=== PATIENT | male | born 1990 | race Caucasian/White ===

== ENCOUNTER 2024-06-03 12:58 | Outpatient (AMB) | payer OTHER, SELFPAY ==
--- NOTE | 2024-06-03 13:00 | A.SPINEOV_ITS ---
Intake Visit Reasons: consult for sx Intake Note: Mr. Calderón is here today c/o right sided siatica and leg pain. 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 Santana Calderón for intractable right leg pain, numbness and weakness HPI: This 34-year-old male has a long history of back pain and intermittent tolerable sciatica. The symptoms started at the age 14 and reoccurred when he was in his 20s and from then yearly he has had sciatica attacks. In the past he has done multiple physical therapy sessions. In the beginning of April he developed again an acute pain radiating down his right leg. This time dear intensity was much worse than usual. The pain radiates from his back down to his calf into his foot. He needed to be admitted to the hospital for pain control. He is currently on oxycodone, Tylenol, Advil, cyclobenzaprine and even with those amount of medication he still needs to lay on the floor from pain. In addition to the pain there is numbness of his right foot and weakness when he pushes his foot down. The latter symptoms have progressed. He tried physical therapy yesterday but is unable to comply due to the pain. He was referred to me emergently as an MRI showed a disc extrusion compressing the right S1 nerve root. PMH: Bipolar Medications: See above. In addition he takes lithium and clonazepam p.r.n. Allergies: NKDA Social history: . 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 He initially sits on his knees in the office and then moves towards laying down from pain. Straight leg raise is positive at 20 degrees with radiating pain into his right leg. There is numbness in the S1 dermatome. There is an absent Achilles reflex. And a grade 3/5 weakness of the plantar flexors on the right side. Radiological Studies: MRI done at [facility] shows moderate L5-S1 degenerative disc disease but more importantly there is a extruded disc fragment that is compressing on the right S1 nerve root. Impression/Plan: This patient is suffering from an acute S1 radiculopathy, right side with neurological deficits caused by a lumbar disc herniation L5-S1 compressing the right S1 nerve root. My advice that he will undergo an L5-S1 lumbar microdiskectomy to address the pain and to halt the neurological deficits. He is scheduled for her June 10. He will go to the emergency room with further progression of his neurological symptoms occur. Thank you for allowing me to participate in your patients care. total time spent was 50 minutes in counseling ,coordination of plan, personal review of imaging, surgical decision making and subsequent plan Josef Gamez MD, PhD Spine Fellowship Trained Neurosurgeon Director, [facility] e, Coding Level of Care Code New Pt Level 4 (71647) Diagnoses Lumbar disc herniation with myelopathy M51.06
== END 2024-06-03 13:30 | disposition home or self-care (01) ==
PROVIDERS: PCP Registered Nurse; Referring Provider Physical Medicine & Rehabilitation; Visit Provider Neurological Surgery
DX: M51.06 Intervertebral disc disorders with myelopathy, lumbar region (principal)
CPT/HCPCS: 99204

== ENCOUNTER → 2024-06-03 12:58 | Outpatient (BNVA) | payer OTHER, SELFPAY | PROVIDERS: PCP Registered Nurse; Visit Provider Neurological Surgery | DX: M51.06 Intervertebral disc disorders with myelopathy, lumbar region (principal) | CPT/HCPCS: 99202 ==

== ENCOUNTER 2024-06-10 09:09 | Day surgery (SDC) | payer OTHER, SELFPAY ==
[2024-06-04 11:52] VITALS: BMI 25.9
[2024-06-10] VITALS (9 sets, daily range): BP systolic 122–155; BP diastolic 75–99; PULSE 58–95; RESP 14–18; TEMP 36.2–36.5; O2SAT 97–100
[2024-06-10] MEDS: Gabapentin 300 MG CAPSULE PO (09:54)
[2024-06-10] MEDS: methocarbamoL 750 MG TABLET PO (09:55)
--- NOTE | 2024-06-10 12:23 | HO.ANESPROP2 ---
HPI - Anesthesia Eval Consult details Narrative: 34 yo male patient for Right L5-[id number] discectomy PMFSH Active Problems Active Problems: All Active Problems Lumbar disc herniation with myelopathy (Acute) GERD Bipolar Past Medical History Medical History Sciatica Back pain Lumbar disc herniation with myelopathy Anxiety Bipolar disorder Family History Family history of problems with anesthesia: No Surgical History Surgical History Hx of appendectomy History of Problems with Anesthesia: No Social History Social History (Updated 06/10/24 @ 12:28 by Neris George MD) Patient Tobacco Use Status: Never used Tobacco Substance Use Type: Marijuana Meds Allergies Allergy/AdvReac Type Severity Reaction Status Date / Time No Known Allergies Allergy Verified 06/10/24 09:22 Home Medications ?Medication ?Instructions ?Recorded ?Confirmed ?Last Taken ?Type clonazepam 0.5 mg tablet 0.5 mg PO DAILY PRN Anxiety 06/04/24 06/04/24 Unknown History lithium carbonate 300 mg capsule 300 mg PO QID 06/04/24 06/10/24 06/10/24 History methocarbamol 500 mg tablet 500 mg PO Q8H PRN Pain 06/04/24 06/04/24 Unknown History omeprazole 20 mg capsule,delayed 20 mg PO DAILY 06/04/24 06/10/24 06/10/24 History release Exam Height,Weight and Vital Signs: Height 6 ft 1 in Weight 89.1 kg Last Vital Signs Temp 97.2 F 06/10/24 09:48 Pulse 58 06/10/24 09:48 Resp 16 06/10/24 09:48 BP 122/75 06/10/24 09:48 Pulse Ox 98 06/10/24 09:48 O2 Del Method Room Air 06/10/24 09:48 Airway Mallampati Class: III (Small mouth) TM Dist: >3cm Neck ROM: Full Loose/Missing/Broken Teeth: No (Denies broken, loose, missing teeth) Heart: RRR Lungs: CTAB. Diminished Assessment and Plan Assessment Anesthesia Assessment: Anesthesia Plan Discussed and Chart Reviewed Final Anesthetic Review Family History of Problems with Anesthesia: No History of Problems with Anesthesia: No NPO: Yes ASA Class: II Final Preanesthetic Review: No Changes in Pt Med Stat, Meds/Allgs Chart Reviewed, Consent Obtained/Reviewed and Anes Risks/Benef Reviewed Patient Risk: Low Procedure Risk: Low Assessment/Block/Sedation in SS: Assess/Block/Sedation-SS Anesthetic Plan Anesthetic Plan: GA Disposition: Standard PACU
--- NOTE | 2024-06-10 12:27 | MHC.SHP ---
Pre-Procedural Eval Section A - 24 Hr Update-Section A only Date of Service: 06/10/24 Section B - Complete if H&P > 30 days Chief Complaint: Intervertebral disc disorders with myelopathy, Allergies: Allergies Allergy/AdvReac Type Severity Reaction Status Date / Time No Known Allergies Allergy Verified 06/10/24 09:22 Review of Systems Sugical H&P ROS: Negative: Constitution, Cardiovascular, Respiratory, Neurological, Psychiatric, Hem-Onc, Allergic/Immunologic, Gastrointestinal, Genitourinary, Musculoskeletal, Integumentary, Endocrine and Eyes/Ears/Nose/Throat Exam Surgical H&P Exam: Not Evaluated: HEENT, Not Evaluated: Heart, Not Evaluated: Lungs, Not Evaluated: Extremities, Not Evaluated: Abdomen, Not Evaluated: Skin and Not Evaluated: Neurological Exam Comment: H&P done in last 30 days Plan I have reviewed the history and physical and performed a pertinent physical examination on my patient. No changes have occurred unless specified. Plan remains the same, R L-S1 microdiscectomy Time Spent With Patient Time: Total time managing care of this patient today __7__ minutes.
--- NOTE | 2024-06-10 14:18 | W.PM.OPN ---
Operative Note Operative Note Date of Service: 06/10/24 Narrative: Preoperative diagnosis: Right S1 radiculopathy due to disc herniation Postoperative diagnosis: Same Procedure: Right L5-S1 microdiskectomy with microscope Surgeon: Josef Gamez MD, PhD Falafel Cart Cook: PEDRO Masters This patient is suffering from a right S1 lumbar radiculopathy due to disc herniation. The patient was offered a L5-S1 microdiskectomy to decompress the nerve root. The procedure complications were explained. The patient was consented. The patient was brought to the operating room and endotracheally intubated. The patient was turned in a prone position on the Ildefonso frame. Prepping and draping was done followed by time-out. A mid lumbar incision was made followed by release of the paravertebral muscles on the right side to expose the L5-S1 interspace. An intraoperative x-rays obtained to confirm the correct level. The microscope was brought in. A L5 laminotomy was done followed by opening of the flavum ligament. The S1 nerve root was identified and retracted medially to expose the L5-S1 disc space. The nerve root was displaced posteriorly. I was unable to retrieve any loose fragments. Therefore I performed an annulotomy and pushed out some minor fragments. According to the MRI there was a loose fragment sitting medial from the nerve root. I was not able to find his loose fragments despite extensive exploration medially from the S1 nerve root. The good news was that the S1 nerve root was completely decompressed. Hemostasis was done. The microscope was removed. Marcaine was injected intramuscularly.The incision was closed in two layers. Steri-Strips used to approximate seizure. An op-site were taken there was used to cover the incision. All sponge and needle counts were correct. Patient was extubated and transported in stable condition to recovery room. this procedure was done with the aid of a physician metallurgical laboratory assistant who performed the initial exposure until the microscope was brought in and performed the closure of the incision. Anesthesia: General Blood loss: 20 mL Complications: None Specimen: None Surgical time: Disposition: Discharge home
--- NOTE | 2024-06-10 14:46 | PM.DS ---
DS: Providers Provider Date of Service: 06/10/24 Primary care physician: Cynthia Dee APRN DS: Summary Time Attestation Discharge Coordination Time (in mins): 15 Quality: Safe Use of Opioids Does Pt have an Active Cancer Diagnosis on the Problem List?: No Quality: Stroke Does the patient have a stroke diagnosis?: No Physical Exam Vital Signs: Vital Signs: Last Vital Signs Temp 97.2 F 06/10/24 09:48 Pulse 58 06/10/24 09:48 Resp 16 06/10/24 09:48 BP 122/75 06/10/24 09:48 Pulse Ox 98 06/10/24 09:48 O2 Del Method Room Air 06/10/24 09:48 BMI result Body Mass Index 25.9 Discharge Plan Discharge Patient Disposition: Home, Self-Care Referrals: Cynthia Dee APRN [Primary Care Provider] - 1 Week Discharge Medications: Continued methocarbamol 500 mg tablet 500 mg PO Q8H PRN (Reason: Pain) clonazepam 0.5 mg tablet 0.5 mg PO DAILY PRN (Reason: Anxiety) lithium carbonate 300 mg capsule 300 mg PO QID omeprazole 20 mg capsule,delayed release(DR/EC) 20 mg PO DAILY Discharge Orders: Discharge Order (Routine); Ordered 06/10/24 Ordered By: Vern Chavez Diet: Advance to usual diet Activity on Discharge: As tolerated Activity Restrictions/Additional Instructions: After your spinal surgery we ask you to observe the following restrictions/guidelines: Activity: It is normal to feel some discomfort as you increase your activity, but that will improve with time. We ask you avoid heavy lifting or acitivities that cause pain. As a general rule, 8lbs is a safe limit for lifting right after surgery. Walk as much as you feel comfortable but not to exhaustion. You will feel extra tired the first few days after surgery. Stay well hydrated. It is OK to walk up and down stairs You may return to driving when you are off narcotics (such as vicodin, oxycodone, dilaudid, etc), and you are back to normal functional capacity. If you have any concerns please check with office before driving. Return to work is specific to each patient and each surgery, so please speak with your doctor/PA at first follow up. Please bring paperwork such as FMLA at that time if you need it filled out. Medications: We will give you a short supply of narcotics after surgery (usually one weeks worth). If you need more please call the office but do not use more than prescribed. You will need to give our office 48 hours notice if you need narcotics refilled and we do not fill narcotics on weekends or evenings. If you are on a narcotic, it is a good idea to take a stool softener such as colace or senna to avoid constipation If you take blood thinner such as aspirin, Plavix, Coumadin, Effient, Eliquis etc for conditions such as Afib, DVT, Pulmonary embolus, coronary disease, stents etc please speak with your surgeon about specific details as to when you can resume these medications. You can resume NSAIDs on post op day 1 (eg: Motrin, Naproxen, etc). Follow up: Please call the office, , after surgery to arrange a 3 week follow up for wound check. Wound Care: You may remove your dressing on the first day after surgery. ?You may ?leave open to air. Please do not remove the steri strips underneath. they will fall off on their own in one week. IT IS NORMAL FOR THE WOUND TO OOZE OR BE BLOODY FOR A FEW DAYS AFTER SURGERY. ?IF THIS HAPPENS JUST PLACE NEW DRESSING OVER IT TO AVOID STAINING CLOTHES. You may shower on post op day # 1 We ask that you do not let the water soak the wound. If it does get wet, just towel dry lightly. Please do not scrub your incision or place any type of chemical/ointment on the wound. No tub baths, pools or jacuzzis for one month. If you have any leaking or redness from your wound, or fevers, please call the office. Print Language: Persian
[2024-06-10] MEDS: oxyCODONE HCl Immed Release 5 MG TABLET PO (15:07)
[2024-06-10] MEDS: ondansetron HCL 4 MG/2 ML VIAL IVPUSH (16:07)
== END 2024-06-10 16:27 | disposition home or self-care (01) ==
PROVIDERS: PCP Registered Nurse; Visit Provider Neurological Surgery
PROC: (CPT 63030; principal; 2024-06-10 12:00)
DX: M51.06 Intervertebral disc disorders with myelopathy, lumbar region (principal); M54.30 Sciatica, unspecified side; R20.0 Anesthesia of skin; Z79.899 Other long term (current) drug therapy; Z79.1 Long term (current) use of non-steroidal anti-inflammatories (NSAID)
CPT/HCPCS: 63030; J0131; J0690; J1100; J1596; J1885; J2250; J2405; J2704; J3010

== ENCOUNTER → 2024-06-10 09:09 | Outpatient (BNV) | payer OTHER, SELFPAY | PROVIDERS: PCP Registered Nurse; Visit Provider Neurological Surgery | DX: M51.17 Intervertebral disc disorders with radiculopathy, lumbosacral region (principal) | CPT/HCPCS: 63030; 99499 ==

== ENCOUNTER 2024-07-06 14:56 | Outpatient (AMB) | payer OTHER, SELFPAY ==
--- NOTE | 2024-07-06 15:07 | HO.SPINEOV ---
Intake Visit Reasons: 1st post op Intake Note: Mr. Calderón is here today for his 1st post-op visit. 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 He reports he is very satisfied with the surgery and feels much better than he did preoperatively. The patient reports he is up walking around and completing the majority of his ADLs. He reports that he no longer suffers from his right-sided shooting radiculopathy. He has no longer utilizing his narcotic pain medication has been getting by with just Tylenol. No new neurological deficits. Patient is able to ambulate well, rises from a seated position without difficulty. Incision sites are closed, well healing, with no signs of drainage. We will follow-up with the patient in 6 weeks for their 2nd postoperative visit. Vern Gamez MD,PhD [facility] Coding Level of Care Code Global (80973) Diagnoses Lumbar disc herniation with myelopathy M51.06
== END 2024-07-06 15:24 | disposition home or self-care (01) ==
PROVIDERS: PCP Registered Nurse; Visit Provider Physician Assistant
DX: M51.06 Intervertebral disc disorders with myelopathy, lumbar region (principal)
CPT/HCPCS: 99024

== ENCOUNTER → 2024-07-06 14:56 | Outpatient (BNVA) | payer OTHER, SELFPAY | PROVIDERS: PCP Registered Nurse; Visit Provider Physician Assistant | DX: Z47.89 Encounter for other orthopedic aftercare (principal); M51.06 Intervertebral disc disorders with myelopathy, lumbar region | CPT/HCPCS: 99212 ==